=== PATIENT | male | born 1995 | race Caucasian/White ===

== ENCOUNTER 2022-11-15 02:40 | Emergency (ER) | payer BC ==
[~2022-11-15] VITALS: Ht 180.3 cm; Wt 72.6 kg
[2022-11-15 03:06] VITALS: BP 114/73
--- NOTE | 2022-11-15 03:12 | NUR ---
TO LOBBY FOLLOWING TRIAGE
--- NOTE | 2022-11-15 04:28 | NUR ---
PT AMB TO BED 11
[2022-11-15] MEDS ORDERED: LIDOCAINE MPF 1% 5 ML ONE (05:23)
--- NOTE | 2022-11-15 05:23 | NUR ---
at the bedside
[2022-11-15] MEDS ORDERED: LIDOCAINE 1% 500 MG/ 50 ML VIAL INJ ONE (05:25)
[2022-11-15] MEDS ORDERED: ACET-10509 PO (05:40)
[2022-11-15 05:55] VITALS: BP 113/63
== END 2022-11-15 05:55 | disposition home or self-care (01) ==
LOC: MED 02:40
DX: S01.81XA Laceration without foreign body of other part of head, initial encounter (principal); R55 Syncope and collapse; W18.39XA Other fall on same level, initial encounter; Y92.009 Unspecified place in unspecified non-institutional (private) residence as the place of occurrence of the external cause; Y93.89 Activity, other specified; Y99.8 Other external cause status
CPT/HCPCS: 12011; 93005; 99283; J2001